=== PATIENT | male | born 1975 | race Asian ===

== ENCOUNTER 2020-04-11 22:45 | Emergency (ER) | payer OTHER ==
[~2020-04-11] VITALS: Ht 165.1 cm; Wt 63.6 kg
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
[2020-04-12 01:28] VITALS: BP 103/75
== END 2020-04-12 01:49 | disposition home or self-care (01) ==
LOC: ER 22:45
DX: S20.219A Contusion of unspecified front wall of thorax, initial encounter (principal); R10.9 Unspecified abdominal pain; V49.49XA Driver injured in collision with other motor vehicles in traffic accident, initial encounter; Y92.488 Other paved roadways as the place of occurrence of the external cause; Y93.89 Activity, other specified; Y99.8 Other external cause status
CPT/HCPCS: 71045; 72170; 99285-25